=== PATIENT | female | born 1985 | race African-American/Black ===

== ENCOUNTER 2020-05-15 19:01 | Emergency (ER) | payer OTHER ==
--- NOTE | 2020-05-15 19:56 | ER Document Report ---
ED Medical Screen (RME) - General Chief Complaint: Leg Pain Stated Complaint: LEG PAIN Time Seen by Provider: 05/15/20 19:47 - HPI Notes: 05/15/20 19:52 35-year-old female presents to the emergency room today for evaluation of right upper morales pain that she experienced after she was doing step ups on flat she was about a week ago. Reports pain is 4-5, throbbing achy, she has tried icing Motrin and heat without any relief. She is unable to bear full weight due to pain. She went to a urgent care locally, they told her that she likely has a blood clot and sent her here. Patient now is concerned that she may have a blood clot. Denies any history of blood clots, denies factor V, denies any periods of immobilization, denies any recent surgery denies any history of cancer treatments. Patient states she did go on a plane flight at the beginning of April to [place]. Denies any fevers chills, chest pain, shortness of breath. Patient is currently on her menstrual cycle I have greeted and performed a rapid initial assessment of this patient. A comprehensive ED assessment and evaluation of the patient, analysis of test results and completion of the medical decision making process will be conducted by additional ED providers. PHYSICAL EXAMINATION: GENERAL: Well-appearing, well-nourished and in no acute distress. CV: s1, s2 regular LUNGS: No respiratory distress Musculoskeletal: Normal range of motion. Homans signs bilaterally. Able to palpate to anterior upper tib-fib where she is having pain, able to reproduce pain. Distal pulses +2 bilaterally equally. NEUROLOGICAL: Normal speech, normal gait. SKIN: Warm, Dry, normal turgor, no rashes or lesions noted. The patient was evaluated during a global COVID-19 pandemic and that diagnosis was suspected/considered upon their initial presentation. Their evaluation, treatment and testing was consistent with current guidelines for patients who present with complaints or symptoms and may be related to COVID-19. 05/15/20 19:55 - Related Data Allergies/Adverse Reactions: No Known Allergies Allergy (Unverified 07/26/11 16:13) Past Medical History Past Surgical History: Reports: Hx Oral Surgery - Immunizations Hx Diphtheria, Pertussis, Tetanus Vaccination: Yes Physical Exam - Vital signs Vitals: Temp Pulse Resp BP Pulse Ox 98.3 F 73 20 149/92 H 100 05/14/20 19:08 05/14/20 19:08 05/14/20 19:08 05/14/20 19:08 05/14/20 19:08 Course - Vital Signs Vital signs: Temp Pulse Resp BP Pulse Ox 98.3 F 73 20 149/92 H 100 05/14/20 19:08 05/14/20 19:08 05/14/20 19:08 05/14/20 19:08 05/14/20 19:08
--- NOTE | 2020-05-15 20:37 | RADIOLOGY REPORT (SQ) ---
EXAM DESCRIPTION: XR TIBIA FIBULA 2 VIEWS COMPLETED DATE/TME: 05/15/2020 20:05 CLINICAL HISTORY: 35 years, Female, r/o fx COMPARISON: None. TECHNIQUE: AP and lateral views. FINDINGS: No evidence for fracture dislocation or soft tissue abnormalities. IMPRESSION: Negative right tibia-fibula film
--- NOTE | 2020-05-15 21:22 | RADIOLOGY REPORT (SQ) ---
EXAM DESCRIPTION: US EXTREMITY VEINS UNILATERAL COMPLETED DATE/TME: 05/15/2020 20:56 CLINICAL HISTORY: 35 years, Female, pain in right morales, pt concerned about blood clot COMPARISON: None. FINDINGS: Right common femoral, femoral, popliteal, posterior tibial and peroneal veins are patent. Greater saphenous vein is patent. The left common femoral veins patent. IMPRESSION: No evidence for DVT in the right lower extremity.
[2020-05-15] MEDS ORDERED: PREDNISONE 20 MG TABLET PO ONE (22:54)
[2020-05-15] MEDS ORDERED: FAMOTIDINE 20 MG TABLET PO ONE (22:54)
--- NOTE | 2020-05-15 23:02 | ER Document Report ---
ED General - General Chief Complaint: Leg Pain Stated Complaint: LEG PAIN Time Seen by Provider: 05/15/20 19:47 Primary Care Provider: URBAN BEE DO [ACTIVE STAFF] - Follow up as needed Notes: 34-year-old female with no significant past medical history presents with pain in the anterior proximal right lower leg after doing exercises at home. Patient says that she was using different shoe when she was exercising every day and then today "step up"movement and felt sudden onset of severe pain in her right anterior morales which has been persistent for the past week. Patient has been taking ibuprofen with mild improvement in pain. Patient went to urgent care who said that she needed to have a blood clot ruled out so she was referred to the ED. Patient denies any recent travel/trauma/surgery/immobilization, exogenous estrogen therapy/recent , DVT/PE/hypercoagulability history in self or family, chest pain, shortness of breath, cough/hemoptysis, weakness numbness, change in gait, fever - Related Data Allergies/Adverse Reactions: No Known Allergies Allergy (Unverified 07/26/11 16:13) Home Medications: ibuprofen prn Past Medical History - General Information source: Patient - Social History Smoking Status: Never Smoker Family History: Reviewed & Not Pertinent Past Surgical History: Reports: Hx Oral Surgery - Immunizations Hx Diphtheria, Pertussis, Tetanus Vaccination: Yes Review of Systems - Review of Systems Notes: REVIEW OF SYSTEMS: CONSTITUTIONAL : Denies fever, chills, or sweats. EENT: Denies recent cold/sinus symptoms, denies throat pain CARDIOVASCULAR: Denies chest pain, SIM RESPIRATORY: Denies cough, denies shortness of breath. GASTROINTESTINAL: Denies abdominal pain, nausea/vomiting. GENITOURINARY: Denies difficulty urinating, painful urination. MUSCULOSKELETAL: Denies neck pain, back pain. SKIN: Denies rash or skin lesions. HEMATOLOGIC : Denies easy bruising or bleeding. LYMPHATIC: Denies swollen, enlarged glands. NEUROLOGICAL: Denies headache, denies change in gait. PSYCHIATRIC: Denies anxiety or stress or depression. Physical Exam - Vital signs Vitals: Temp Pulse Resp BP Pulse Ox 98.3 F 73 20 149/92 H 100 05/14/20 19:08 05/14/20 19:08 05/14/20 19:08 05/14/20 19:08 05/14/20 19:08 - Notes Notes: PHYSICAL EXAMINATION: GENERAL: Well-appearing, well-nourished and in no acute distress. HEAD: Atraumatic, normocephalic. EYES: Pupils equal round and appropriate constriction, sclera anicteric, conjunctiva are normal. ENT: nares patent, moist mucous membranes. NECK: Normal range of motion, supple without lymphadenopathy LUNGS: Normal respiratory rate and effort, speaking in full sentences, normal respiratory rate and effort HEART: Regular rate, no JVD, no lower extremity edema ABDOMEN: Soft, nontender, no guarding, no masses, no CVAT EXTREMITIES: Normal range of motion, no pitting or edema. No cyanosis. DP pulses 2+ bilaterally, 5 out of 5 strength in all bilateral lower extremity distributions with normal sensation, focal tenderness over right proximal tibia approximately 4 inches below knee without any bony deformity, no edema, no overlying skin abnormalities, stable joints, soft compartments NEUROLOGICAL: Awake, alert, conversing appropriately, moves all extremities spontaneously. PSYCH: Normal mood, normal affect. SKIN: Warm, Dry, normal turgor, no rashes or lesions noted. Course - Re-evaluation Re-evalutation: 05/15/20 22:58 Sudden severe anterior morales pain without any risk factors for DVT/PE. Possible avulsion fracture, strain or sprain. No signs of infectious etiology/necrotizing fasciitis or compartment syndrome. Neurovascularly intact. Patient had lower extremity ultrasounds performed which showed no DVT and had an x-ray which showed no fractures or dislocations. Patient's gait is steady. Patient appropriate for outpatient follow-up with orthopedic surgeon and primary doctor. Gave patient extensive return to emergency department precautions which she demonstrated understanding of, patient denied having any other questions or concerns. Patient says she has had mild abdominal discomfort with taking ibuprofen, but has no abdominal pain currently has had no severe abdominal pain and no melena, diarrhea, bloody stools, or vomiting. Will give short course of steroid with Pepcid and few doses of Tylenol 3. Gave return to ED precautions about this as well. - Vital Signs Vital signs: Temp Pulse Resp BP Pulse Ox 98.2 F 66 18 153/94 H 100 05/15/20 23:20 05/15/20 23:20 05/15/20 23:20 05/15/20 23:20 05/15/20 23:20 - Laboratory Results Critical Laboratory Results Reviewed: No Critical Results - Radiology Results Critical Radiology Results Reviewed: No Critical Results Discharge - Discharge Clinical Impression: Leg injury Qualifiers: Encounter type: initial encounter Laterality: right Qualified Code(s): S89.91XA - Unspecified injury of right lower leg, initial encounter High blood pressure Qualifiers: Hypertension type: unspecified Qualified Code(s): I10 - Essential (primary) hypertension Disposition: HOME, SELF-CARE Additional Instructions: Muscle Strain You have likely strained a muscle -- torn the fibers within the muscle. This often occurs with strenuous exertion, or during an injury that suddenly stretches the muscle. The seriousness of a strain varies. Some strains heal within days, others cause problems for months. X-rays cannot show a muscle strain. X-rays are taken only if symptoms suggest that a fracture could be present. The usual treatment of a muscle strain is rest and ice packs. Sometimes, a sling, splint, or crutches may be necessary to rest the muscle. The muscle can be used again once pain subsides. Severe strains require a special exercise and stretching program to prevent permanent stiffness and disability. Your doctor will advise you if this will be necessary. Call the doctor immediately if pain or swelling becomes severe, or if numbness or discoloration develop. Follow-up with an orthopedic surgeon and primary doctor within 2 weeks if your symptoms continue. If you have any worsening pain, weakness or numbness, inability to walk, swelling in your leg, chest pain, shortness of breath, dizziness, fever, skin changes, or any other worsening or alarming symptoms return to the emergency department immediately. Your blood pressure was mildly elevated in the emergency department at 149/92. This is likely because you are in pain however you should have this rechecked by primary doctor when you are feeling better as untreated high blood pressure is a risk factor for stroke, heart attack, and . Prescriptions: Prednisone [Deltasone 20 mg Tablet] 2 tab PO DAILY 4 Days #8 tablet Famotidine [Pepcid 20 mg Tablet] 20 mg PO DAILY #12 tablet Acetaminophen with Codeine [Tylenol #3 Tablet] 1 each PO QPMP PRN 5 Days #5 tablet PRN Reason: Severe Pain Referrals: URBAN BEE DO [ACTIVE STAFF] - Follow up as needed
[2020-05-15 23:23] VITALS: BP 153/94
== END 2020-05-16 00:04 | disposition home or self-care (01) ==
LOC: ER 19:01
DX: S89.91XA Unspecified injury of right lower leg, initial encounter (principal); I10 Essential (primary) hypertension; X58.XXXA Exposure to other specified factors, initial encounter; Y93.A9 Activity, other involving cardiorespiratory exercise; Y92.009 Unspecified place in unspecified non-institutional (private) residence as the place of occurrence of the external cause
CPT/HCPCS: 99285; 93971; 73590; J7512